=== PATIENT | male | born 1955 | race Caucasian/White ===

== ENCOUNTER 2023-11-15 12:02 | Observation (INO) | payer MEDICARE, SELFPAY ==
[2023-11-15] VITALS (14 sets, daily range): BP systolic 103–188; BP diastolic 65–108; PULSE 62–78; RESP 17–24; TEMP 36.6–36.7; O2SAT 93–99; BMI 29.9; BMI 30.4
[2023-11-15 12:30] LABS: Basophils % 0.2 %; Eosinophils % 0.2 %; Hematocrit 44.2 % (37-53); Lymphocytes # 0.6 10^3/uL (0.8-4.8); Lymphocytes % 14.9 %; Mean Corpuscular HGB Conc 34.8 g/dL (30-55); Mean Corpuscular Hemoglobin 31.8 pg (27-33); Mean Corpuscular Volume 91.3 fl (82-101); Mean Platelet Volume 10.6 fL (7.4-10.4); Monocytes # 0.4 10^3/uL (0.2-0.9); Monocytes % 10.2 %; Neutrophils # 3.14 10^3/uL (1.8-7.7); Neutrophils % 74.3 %; Nucleated Red Blood Cells % 0 %; Platelet Count 48 10^3/cmm (157-399); Red Blood Count 4.84 10^6/uL (3.85-5.65); Red Cell Distribution Width 15.1 % (12.1-15.1); White Blood Count 4.23 10^3/uL (3.29-11.43)
--- NOTE | 2023-11-15 12:41 | XRR_ITS ---
PROCEDURE INFORMATION: Exam: XR Chest Exam date and time: 11/15/2023 12:49 PM Age: 68 years old Clinical indication: Pain; Angina pectoris; Additional info: Chest pain TECHNIQUE: Imaging protocol: Radiologic exam of the chest. Views: 1 view. COMPARISON: No relevant prior studies available. FINDINGS: Airway: The airways are patent. Lungs: There are multiple punctate pulmonary parenchymal calcifications, consistent with remote granulomatous organism exposure. No consolidations. Pleural spaces: No pleural effusions or pneumothorax. Heart/Mediastinum: The heart demonstrates mild diffuse enlargement. Vasculature: Calcified aortic knob. Bones/joints: No acute skeletal abnormality or aggressive osseous lesion. Soft tissues: No acute soft tissue findings. XR/XR chest 1V portable [id number] IMPRESSION: No acute thoracic pathology.
--- NOTE | 2023-11-15 12:42 | CTR_ITS ---
PROCEDURE INFORMATION: Exam: CT Abdomen And Pelvis With Contrast Exam date and time: 11/15/2023 1:26 PM Age: 68 years old Clinical indication: Abdominal pain; Localized; Prior surgery; Surgery date: 6+ months; Surgery type: Gb/hernia; Patient HX: Lower abd pain with nausea and vomiting on and off for a 1 1/2 years; Additional info: Abdominal pain, n/v TECHNIQUE: Imaging protocol: Computed tomography of the abdomen and pelvis with contrast. Radiation optimization: All CT scans at this facility use at least one of these dose optimization techniques: automated exposure control; mA and/or kV adjustment per patient size (includes targeted exams where dose is matched to clinical indication); or iterative reconstruction. Contrast material: OMNI 350; Contrast volume: 100 ml; Contrast route: INTRAVENOUS (IV); COMPARISON: CR XR chest 1V portable [id number] 11/15/2023 12:49 PM RADIATION DOSE METRICS: Total DLP (mGy-cm): 880 FINDINGS: Lungs: There are multiple punctate pulmonary parenchymal calcifications, consistent with remote granulomatous organism exposure. Lung bases are clear. Diaphragm: A small hiatal hernia is present. Liver: The liver has a nodular contour and there is relative hypertrophy of the caudate lobe, consistent with cirrhosis. Peripheral calcification in the right hepatic lobe, benign.The liver is otherwise unremarkable. Cavernous transformation of the cecily hepatis. Gallbladder and biliary ducts: Prior cholecystectomy. There is no evidence of biliary ductal dilation. Pancreas: There is diffuse, benign fatty infiltration of the pancreas. There is diffuse atrophy of the pancreatic parenchyma. The pancreas is otherwise unremarkable. Spleen: Spleen is enlarged measuring 19 cm in length. The spleen is otherwise unremarkable. Adrenal glands: The adrenal glands are normal. Kidneys and ureters: There are multiple simple right renal cysts, as large as 3.7 cm. No follow-up is recommended. Subcentimeter left renal hypodense lesions are too small to characterize but most probably benign representing cysts. Consider correlation with nonemergent ultrasound. The kidneys are otherwise unremarkable. The ureters are normal. Stomach and bowel: No bowel obstruction or significant bowel wall thickening. Appendix: No evidence of appendicitis. Intraperitoneal space: There is a small amount of free intraperitoneal fluid present. No intraperitoneal fluid collections. There is no free intraperitoneal air. Moderate to large right inguinal ascites containing nonobstructive hernia. Vasculature: The arterial vasculature demonstrates diffuse mild atherosclerotic calcification. No aortic aneurysms. Linear calcification extending peripherally throughout the main portal vein with non-opacification of the distal main portal vein. Recanalization of the umbilical vein. Extensive varices throughout the omentum, perisplenic space, and retroperitoneum with a left splenorenal shunt. Lymph nodes: No concerning adenopathy. Urinary bladder: The bladder is decompressed. Reproductive: The prostate demonstrates mild nonspecific enlargement. The seminal vesicles are normal. Bones/joints: Severe multilevel degenerative changes of the spine, as manifested by multilevel anterior osteophytes and multilevel decrease in intervertebral disc space. No acute skeletal abnormality or aggressive osseous lesion. Soft tissues: There is a fat-containing umbilical hernia. No acute body wall soft tissue findings. CT/CT abdomen pelvis w con* [id number] IMPRESSION: 1. Advanced cirrhosis and sequela of decompensated portal hypertension. 2. 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 COMMENTS: Consistent with the [employer]'s Incidental Findings Committee white paper (J Am James Radiol 2018): Any incidental renal lesion less than 1 cm or classified as too small to characterize, or any incidental cystic renal lesion characterized as simple-appearing, is likely benign. No follow-up imaging is recommended for these lesions per consensus recommendations based on imaging criteria.
--- NOTE | 2023-11-15 12:42 | ED_ITS ---
HPI - Nausea/Vomiting/Diarrhea 2 General: Chief complaint: Abdominal Pain Stated complaint: n/v, testiculs are swollen Time Seen by Provider: 11/15/23 12:10 Source: patient Mode of arrival: wheelchair Limitations: no limitations History of Present Illness: Patient is a 68-year-old male with a history of non-alcoholic liver cirrhosis here with his significant other for evaluation of chronic nausea, vomiting, diarrhea, abdominal pain, anorexia/decreased appetite. Patient states he follows with a liver specialist, Dr. Kelley, at [facility]. He states at one point he was on a liver transplant list but was taken off of this. He also follows up with Dr. Ovalles, presumably GI at [facility] in [place]. states symptoms have been an ongoing problem but do not seem to be getting any better. Patient feels like over the past 4 days they are worse. states he is going to because he cannot eat . Patient reportedly has had multiple endoscopies, capsule endoscopies, colonoscopies, etc. He was told he had inflammation in the lining of the stomach . He is supposed to be taking omeprazole but states he cannot hold down this medication. He has not been taking his lactulose because it gives him diarrhea which he states he already has even without the medication. He states he does not routinely require paracentesis-last one he had performed was two years ago. He does not have a primary care provider. He has no records through [facility] so attempts at getting records from [facility] will be made. He has not had any fevers. No hematemesis/history of esophageal varices. No black/tarry stools. MD elicited complaint: nausea, vomiting, diarrhea and abdominal pain Pertinent past history: other (liver cirrhosis) Onset (ago): day(s) Description of diarrhea: watery Associated nausea: Yes Associated abdominal pain: Yes Location of pain: Diffuse Radiation: diffuse Pain consistency: constant Severity: moderate Quality: cramping and aching Exacerbating factors: eating Relieving factors: none Associated symtoms: Reports fatigue and nausea; Denies change in vision, chest pain, dizziness, dysuria, headache(s), palpitations or syncope Review of Systems 2 Const: Reports: change in appetite, change in weight and fatigue; Denies: fever(s), chills or body aches Eyes: Denies: change in vision or blurry vision Card: Denies: chest pain, palpitations, irregular heart rhythm, lightheadedness, syncope or dyspnea on exertion Resp: Denies: dyspnea, productive cough or pain on inspiration GI: Reports: abdominal pain, nausea, vomiting and diarrhea; Denies: hematemesis, heartburn, hematochezia or melena : Denies: flank pain, difficulty urinating, dysuria, urinary frequency, urinary urgency or urinary hesitancy Musc: Denies: neck pain, back pain, extremity pain, extremity swelling or joint pain Skin/Breast: Denies: rash Neuro: Denies: headache(s), numbness in extremities, weakness in extremities, sensory changes or dizziness Physical Exam 2 Const: COMMON NORMALS: no acute distress, patient oriented x3, no limitations and alert GENERAL APPEARANCE: cooperative ORIENTATION/CONSCIOUSNESS: Yes awake, Yes oriented to person, Yes oriented to place and Yes oriented to time OTHER: appears jaundiced Eye: GENERAL EYE: appearance normal, both eyes and all related structures Resp: COMMON NORMALS: normal respiratory effort and clear to auscultation bilaterally EFFORT & INSPECTION: Yes tachypneic AUSCULTATION: clear to auscultation bilaterally Cardio: COMMON NORMALS: regular rate and regular rhythm RATE: regular rate RHYTHM: regular rhythm GI: COMMON NORMALS: Soft to palpation and no masses INSPECTION: No caput medusae present and No Fluid wave present AUSCULTATION: Yes normoactive bowel sounds PALPATION: Yes Soft to palpation, Yes Tenderness to palpation present (GI) (diffusely), No Guarding due to palpation present (GI) and No Rigid due to palpation PERCUSSION: no fluid wave : COMMON NORMALS: Yes no CVA tenderness BLADDER/KIDNEY EXAM: Yes no CVA tenderness Back/Pelvis: COMMON NORMALS: no CVA tenderness and thoracic and lumbar spine normal to inspection Extremity: NARRATIVE EXTREMITY EXAM: mild lower extremity edema GENERAL: Yes normal exam except as noted Neuro: COMMON NORMALS: patient oriented x3, moves all extremities, no focal motor deficits and no sensory deficits noted SENSORIUM/ORIENTATION: Yes alert, Yes oriented to person, Yes oriented to place and Yes oriented to time Course 2 Consultations: Consultation #1: Dr. Francis-liver specialist at [facility]-recommends admission here until transfer-treat prophylactically with SBP with ceftriaxone and albumin Consultation #2: Dr. Dowd-accepts hospitalization Vital Signs: Vital signs: Vital Signs Temperature 97.9 F 11/15/23 12:20 Pulse Rate 69 11/15/23 15:30 Respiratory Rate 20 H 11/15/23 15:00 Blood Pressure 156/108 11/15/23 15:30 Pulse Oximetry 95 11/15/23 15:30 Oxygen Delivery Me thod Room Air 11/15/23 15:30 MDM - Nausea/Vomiting/Diarrhea Medical Decision Making Patient is a 68-year-old male with a history of nonalcoholic liver cirrhosis here for complaints of nausea, vomiting, diarrhea, abdominal pain, decreased appetite, trouble eating. Patient states these have been chronic over the past year but have worsened over the past 4 days. Patient follows up with hepatology at [facility]. We have attempted to get records from them as well as [facility] without success. He has never been through [facility] before so I do not have any baseline comparison labs or imaging. His labs today do not appear overly abnormal for what I would expect somebody with advanced liver cirrhosis. He is thrombocytopenic. He has hyperbilirubinemia. INR is elevated. CT scan showing advanced cirrhosis and sequela of decompensated portal hypertension with chronic main portal vein thrombosis. I was able to finally able to speak to Dr. Francis through [facility] liver specialist team (Dr. Kelley is on vacation and this is one of her partners). He is recommending possible admission to our hospital service for prophylactic treatment of SBP although he thinks this is a low possibility. He has accepted patient to [facility] when bed is available. States if patient does not improve and bilirubin continues to elevate he would continue plan for transfer and be evaluated for possible liver transplant. If he begins to feel better and labs start looking better he could probably cancel transfer and follow up as an outpatient. Records did eventually get faxed. Patient's thrombocytopenia and INR today are at his baseline. His hyperbilirubinemia is elevated today (4.8 compared to 1.9 three months ago). Looking through documentation patient does have a history of nonbleeding esophageal varices as well as portal hypertensive gastropathy. He does have known chronic portal vein thrombosis but has never been started on anticoagulation. Dr. Dowd will accept patient. Medical Records I reviewed the patient's medical records. Lab Data I reviewed the patient's lab results. 11/15/23 12:26 11/15/23 12:26 Radiology Impressions Chest X-Ray 11/15/23 12:41 IMPRESSION: No acute thoracic pathology. Abdomen/Pelvis CT 11/15/23 12:42 IMPRESSION: 1. Advanced cirrhosis and sequela of decompensated portal hypertension. 2. 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 COMMENTS: Consistent with the [employer]'s Incidental Findings Committee white paper (J Am James Radiol 2018): Any incidental renal lesion less than 1 cm or classified as too small to characterize, or any incidental cystic renal lesion characterized as simple-appearing, is likely benign. No follow-up imaging is recommended for these lesions per consensus recommendations based on imaging criteria. Laboratory Results WBC 4.23 10^3/uL (3.29-11.43) 11/15/23 12:26 RBC 4.84 10^6/uL (3.85-5.65) 11/15/23 12:26 Hgb 15.40 g/dL (11.27-16.99) 11/15/23 12:26 Hct 44.2 % (37-53) 11/15/23 12:26 MCV 91.3 fl (82-101) 11/15/23 12:26 MCH 31.8 pg (27-33) 11/15/23 12:26 MCHC 34.8 g/dL (30-55) 11/15/23 12:26 RDW 15.1 % (12.1-15.1) 11/15/23 12:26 Plt Count 48 10^3/cmm (157-399) L 11/15/23 12:26 MPV 10.6 fL (7.4-10.4) H 11/15/23 12:26 Neut % (Auto) 74.3 % 11/15/23 12:26 Lymph % (Auto) 14.9 % 11/15/23 12:26 [place] % (Auto) 10.2 % 11/15/23 12:26 Eos % (Auto) 0.2 % 11/15/23 12:26 Baso % (Auto) 0.2 % 11/15/23 12:26 Neut # (Auto) 3.14 10^3/uL (1.8-7.7) 11/15/23 12:26 Lymph # (Auto) 0.6 10^3/uL (0.8-4.8) L 11/15/23 12:26 [place] # (Auto) 0.4 10^3/uL (0.2-0.9) 11/15/23 12:26 Eos # (Auto) 0.0 10^3/uL (0.0-0.8) 11/15/23 12:26 Baso # (Auto) 0.0 10^3/uL (0.0-0.1) 11/15/23 12:26 Nucleated RBC % (auto) 0 % 11/15/23 12: Nucleated RBCs # 0.0 /100WBC 11/15/23 12: PT 17.90 SECONDS (12.1-14.9) H 11/15/23 12: INR 1.43 (0.8-1.2) H 11/15/23 12:26 APTT 35.8 SECONDS (23.9-36.7) 11/15/23 12:26 Sodium 136 mmol/L (136-145) 11/15/23 12:26 Potassium 3.5 mmol/L (3.5-5.1) 11/15/23 12:26 Chloride 99 mmol/L (98-107) 11/15/23 12:26 Carbon Dioxide 20 mmol/L (22-29) L 11/15/23 12:26 Anion Gap 20.5 (5-19) H 11/15/23 12:26 BUN 10 mg/dL (8-23) 11/15/23 12:26 Creatinine 0.6 mg/dL (0.7-1.2) L 11/15/23 12:26 GFR Calculation 134.4 mL/min (90-130) H 11/15/23 12:26 Glucose 149 mg/dL (65-115) H 11/15/23 12:26 Calculated Osmolality 284 mOsm/kg (285-295) L 11/15/23 12:26 Lactic Acid 3.4 mmol/L (0.5-2.2) H 11/15/23 12:26 Lactic Acid (Sepsis) 3.9 mmol/L (0.5-2.2) H 11/15/23 15:20 Calcium 10.2 mg/dL (8.5-10.5) 11/15/23 12:26 Total Bilirubin 4.8 mg/dL (0.15-1.2) H 11/15/23 12:26 AST 43 U/L (0-40) H 11/15/23 12:26 ALT 27 U/L (0-41) 11/15/23 12:26 Alkaline Phosphatase 105 U/L (40-130) 11/15/23 12:26 Ammonia 21 umol/L (16-60) 11/15/23 12:26 Creatine Kinase 69 U/L (39-308) 11/15/23 12:26 NT-Pro-B Natriuret Pep 616 pg/mL (0-125) H 11/15/23 12:26 Total Protein 8.8 g/dL (6.6-8.7) H 11/15/23 12:26 Albumin 4.0 g/dL (3.5-5.2) 11/15/23 12:26 Globulin 4.8 g/dL (1.3-4.6) H 11/15/23 12:26 Lipase 73 U/L (13-60) H 11/15/23 12:26 Urine Color Yellow (Yellow) 11/15/23 13:32 Urine Appearance Slightly cloudy (CLEAR) 11/15/23 13:32 Urine pH 8 (5-7) H 11/15/23 13:32 Ur Specific [place] 1.015 (1.005-1.030) 11/15/23 13:32 Urine Protein Neg (Negative) 11/15/23 13:32 Urine Glucose (UA) Norm (Normal) 11/15/23 13:32 Urine Ketones 2+ (Negative) H 11/15/23 13:32 Urine Blood Neg (Negative) 11/15/23 13:32 Urine Nitrate Negative (Negative) 11/15/23 13:32 Urine Bilirubin Neg (Negative) 11/15/23 13:32 Urine Urobilinogen Norm mg/dL (Negative) 11/15/23 13:32 Ur Leukocyte Esterase Negative (Negative) 11/15/23 13:32 Urine RBC None /hpf (0-2) 11/15/23 13:32 Urine WBC 0-4 /hpf (0-5) H 11/15/23 13:32 Ur Squamous Epith Cells 0-4 /hpf (0-5) H 11/15/23 13:32 Amorphous Sediment 3+ /hpf 11/15/23 13:32 Urine Bacteria Trace /hpf (NONE) 11/15/23 13:32 H. pylori IgG Antibody Negative (Negative) 11/15/23 12:26 All radiology interpretation(s) finalized by discharge Discharge Plan Discharge Patient Disposition: Admitted As Inpatient Clinical Impression: Chronic liver disease and cirrhosis, Portal hypertensive gastropathy, Hyperbilirubinemia Condition: Stable Coding Level of Care Code ED Financial Compliance Manager for Hebert Mcneal
[2023-11-15] MEDS: ondansetron 2 mg/ML SDV 2 mL 4 MG IVP (12:44)
[2023-11-15 12:47] LABS: Alanine Aminotransferase 27 U/L (0-41); Alkaline Phosphatase 105 U/L (40-130); Anion Gap 20.5 (5-19); Aspartate Amino Transferase 43 U/L (0-40); Blood Urea Nitrogen 10 mg/dL (8-23); Calcium 10.2 mg/dL (8.5-10.5); Carbon Dioxide 20 mmol/L (22-29); Chloride 99 mmol/L (98-107); Creatinine Clr Calc Pharmacy 88.1561; Globulin 4.8 g/dL (1.3-4.6); Glomerular Filtration Rate 134.4 mL/min (90-130); Glucose 149 mg/dL (65-115); Osmolality Calculated 284 mOsm/kg (285-295); Potassium 3.5 mmol/L (3.5-5.1); Sodium 136 mmol/L (136-145); Total Bilirubin 4.8 mg/dL (0.15-1.2); Total Protein 8.8 g/dL (6.6-8.7)
[2023-11-15 12:58] LABS: INR 1.43 (0.8-1.2); Partial Thromboplastin Time 35.8 SECONDS (23.9-36.7)
[2023-11-15 13:04] LABS: Creatine Phosphokinase 69 U/L (39-308); Lipase 73 U/L (13-60)
[2023-11-15 13:08] LABS: Ammonia 21 umol/L (16-60)
[2023-11-15 13:14] LABS: Lactic Sepsis W/Reflex 3.4 mmol/L (0.5-2.2)
[2023-11-15 13:21] LABS: H. Pylori IgG Antibody Negative (Negative)
[2023-11-15] MEDS: iohexol 350 mg/mL 500 mL Btl (per mL) IV (13:29)
[2023-11-15 13:31] LABS: NT Pro B Type Natriuretic Pept 616 pg/mL (0-125)
[2023-11-15] MEDS: pantoprazole 40 mg SDV IVP ×2 (13:37→20:41)
[2023-11-15] MEDS: lidocaine 2% viscous 15 ML, aluminum-mag hydrox-simethicon 30 ML, sucralfate oral liq 1 GM PO (13:37)
[2023-11-15 14:15] LABS: Urine Color Yellow (Yellow)
[2023-11-15 14:16] LABS: Add Urine Microscopic? YES; Amorphous Sediment Urine 3+ /hpf; Bacteria Urine TRACE /hpf; Bilirubin Urine Neg (Negative); Blood Urine Neg (Negative); Glucose Urine UA Norm (Normal); Ketones Urine 2+ (Negative); Leukocyte Esterase Urine Negative (Negative); Nitrate Urine Negative (Negative); Protein Urine Neg (Negative); Specific Gravity, Urine 1.015 (1.005-1.030); Squamous Epithelial Cell Urine 0-4 /hpf (0-5); Urine Appearance Slightly Cloudy (CLEAR); Urobilinogen Urine Norm (Negative); WBC Urine 0-4 /hpf (0-5); pH Urine 8 (5-7)
[2023-11-15 14:17] LABS: Add Urine Culture? No
[2023-11-15] MEDS: metoclopramide 5 mg/mL SDV 2 mL 10 MG IVP (14:31)
[2023-11-15 14:38] LABS: Reflex Lactate Order REFLEX LACTIC ORDERD
[2023-11-15 15:43] LABS: Lactic Acid level (Lactate) 3.9 mmol/L (0.5-2.2)
[2023-11-15] MEDS: sodium chloride 0.9% 500 ML 999 ML IV (16:15)
[2023-11-15] MEDS: cefTRIAXone 2,000 mg SDV 2000 MG IVP (17:22)
[2023-11-15] MEDS: albumin 25 G/100 ML BAG 60 G IV (17:33)
[2023-11-15] MEDS: water for injection-sterile 10 ML (17:37)
--- NOTE | 2023-11-15 18:23 | PC.NURSE ---
Report called to Gurpreet on med-surge.
--- NOTE | 2023-11-15 18:38 | PC.NURSE ---
Patient arrives to unit via a bed at 1840. He was able to transfer to hospital bed by walking.
--- NOTE | 2023-11-15 19:06 | PM.HP ---
Providers/Chief Complaint Admitting Physician: Hamilton Dowd Chief Complaint: n/v, testiculs are swollen History of Present Illness Pleasant 68-year-old gentleman with history of nonalcoholic liver cirrhosis, following with hepatology at [facility] and gastroenterology at [facility], esophageal varices, but also some recurrent difficulties with episodes of nausea and vomiting, anorexia, reports the source of this has not been clearly identified he previously had endoscopic evaluation with finding of only mild gastritis, with history of diabetes, he states he has also had a gastric emptying study with his stomach emptying a good time, he states he has been unable to keep down food drink or his medications, vomiting up some greenish slime. He has been losing weight, and lost over 10 pounds. The last 4 days this is gotten worse, to the point that he consistently has not been able to keep his medications down. Has not kept any food down. He has chronic diarrhea. Has been unable to keep down his acid jarrod, on other medicines. He has been having chills. And states has been feeling hot to touch. In ER he is febrile he is noted to have worsening of T. bili up to 4.8 compared to prior INR is 1.43. Platelets 48. 3. ET abdomen pelvis with advanced cirrhosis and sequela of decompensated portal hypertension. 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 Case was discussed with hepatology and [facility], at current time there are no beds available there. With concern for decompensated cirrhosis, they are recommending admission here with empiric treatment for possibility of SBP, albumin, symptomatic treatment nausea, reassessment while pending bed to [facility]. Review of Systems Const: Reports: change in appetite and change in weight; Denies: fever(s), chills, body aches or malaise ENMT: Denies: throat pain, oral sores or ear or mastoid pain Card: Denies: chest pain, edema, pre-syncope or dyspnea on exertion Resp: Denies: dyspnea, productive cough, change in phlegm color or hemoptysis GI: Reports: nausea and vomiting; Denies: abdominal pain, diarrhea, constipation, hematochezia or melena : Denies: flank pain, difficulty urinating, urinary frequency or hematuria Musc: Denies: back pain, joint swelling or joint redness Skin/Breast: Denies: rash or new lesions Neuro: Denies: headache(s) or dizziness Medications/Allergies Home Medications Medication Instructions Recorded Confirmed Last Taken Type cetirizine 10 mg tablet 10 mg PO DAILY PRN ALLERGIES 11/15/23 11/15/23 11/11/23 History empagliflozin 25 mg tablet 25 mg PO DAILY 11/15/23 11/15/23 11/11/23 History (Jardiance) fluoxetine 20 mg capsule 20 mg PO DAILY 11/15/23 11/15/23 11/11/23 History furosemide 40 mg tablet 40 mg PO DAILY 11/15/23 11/15/23 11/11/23 History hydroxyzine HCl 25 mg tablet 25 mg PO DAILY 11/15/23 11/15/23 11/11/23 History lactulose 10 gram/15 mL oral See Rx Instructions .Route .COMPLEX 11/15/23 11/15/23 11/11/23 History solution (Constulose) methadone 10 mg tablet See Rx Instructions .Route .COMPLEX 11/15/23 11/15/23 11/11/23 History methadone 5 mg tablet See Rx Instructions .Route .COMPLEX 11/15/23 11/15/23 11/11/23 History montelukast 10 mg tablet 10 mg PO DAILY 11/15/23 11/15/23 11/11/23 History omeprazole 40 mg capsule,delayed 10 mg PO DAILY 11/15/23 11/15/23 11/11/23 History release potassium chloride 20 mEq 20 meq PO DAILY 11/15/23 11/15/23 11/12/23 History tablet,extended release(part/cryst) (Klor-Con M) rifaximin 550 mg tablet (Xifaxan) 550 mg PO BID 11/15/23 11/15/23 11/11/23 History spironolactone 25 mg tablet 25 mg PO BID 11/15/23 11/15/23 11/11/23 History zolpidem 5 mg tablet See Rx Instructions .Route .COMPLEX 11/15/23 11/15/23 11/11/23 History Allergies Allergy/AdvReac Type Severity Reaction Status Date / Time codeine Allergy ADR-Halluci Verified 11/15/23 13:53 nating hydrocodone Allergy ADR-Halluci Verified 11/15/23 13:53 nating morphine Allergy ADR-Halluci Verified 11/15/23 13:53 nating oxycodone Allergy ADR-Halluci Verified 11/15/23 12:22 nating PFSH Acute PFSH: Medical History (Updated 11/15/23 @ 19:22 by Hamilton Dowd MD) Non-alcoholic cirrhosis Social History (Updated 11/15/23 @ 19:18 by Hamilton Dowd MD) Marital status: Vitals/I&O/Wt Last Vital Signs Temp 97.9 F 11/15/23 12:20 Pulse 75 11/15/23 17:30 Resp 19 H 11/15/23 16:30 BP 129/73 11/15/23 16:00 Pulse Ox 95 11/15/23 17:30 O2 Del Method Room Air 11/15/23 17:00 11/15/23 11/15/23 11/15/23 06:59 14:59 22:59 Intake Total 500 / 500 Balance 500 / 500 Weight last 48 hrs Weight 81.647 kg Physical Exam Narrative: Accompanied by his . Const: COMMON NORMALS: patient oriented x3 and alert GENERAL APPEARANCE: cooperative ORIENTATION/CONSCIOUSNESS: Yes awake HENMT: COMMON NORMALS: oropharynx normal Neck/C-Spine: COMMON NORMALS: no JVD Resp: COMMON NORMALS: normal respiratory effort and clear to auscultation bilaterally AUSCULTATION: clear to auscultation bilaterally Cardio: COMMON NORMALS: no JVD, regular rhythm, S1 normal heart sound present, S2 normal heart sound present and No murmurs present (Cardio) RHYTHM: regular rhythm HEART SOUNDS: S1 normal heart sound present and S2 normal heart sound present GI: COMMON NORMALS: Normal to inspection, nondistended, normoactive bowel sounds present and Soft to palpation PALPATION: Yes Soft to palpation OTHER: Large abdomen. Extremity: COMMON NORMALS: no joint enlargement and no pedal edema Neuro: COMMON NORMALS: patient oriented x3 and moves all extremities SENSORIUM/ORIENTATION: Yes alert Skin: COMMON NORMALS: no rashes or lesions noted GENERAL SKIN EXAM: no rashes or lesions noted Data 11/15/23 12:26 11/15/23 12:26 Micro: Microbiology 11/15/23 16:38 Blood Culture - Preliminary Blood SPECIMEN COLLECTED 11/15/23 16:34 Blood Culture - Preliminary Blood SPECIMEN COLLECTED A&P Assessment and plan (1) Decompensated hepatic cirrhosis: Decompensated on alcoholic hepatic cirrhosis, with worsening T. bili, hemoglobin 4.8, with small amount of ascites on CT, nonincarcerated hernia, without signs of obstruction. Signs of severe portal hypertension on CT, also noted lactic acidosis 3.4, 3.9 on repeat. Has had recurrent nausea and vomiting, unable to tolerate oral intake, unable to keep down his medications. Received Zofran IV. Continue Zofran IV for now until able to tolerate some oral intake more reliably. Noted thrombocytopenia 48, INR 1.43. Per hepatology recommendation treat for suspicion of possible SBP with ceftriaxone, albumin infusions. He is on the list for admission to [facility] for additional assessment possibly consideration of needing liver transplant. Reviewed vitals, CBC, INR, CMP, lactic acid, CK, BNP, lipase, UA H. pylori, chest x-ray, CT abdomen pelvis. Reviewed ER provider note, discussed with ER provider. States she sometimes takes an NSAID for aches and pains, otherwise sometimes takes aspirin. Discussed with him to avoid NSAIDs at all times may contribute to worsening liver cirrhosis. Pending bed opening at [facility] in case of lack of improvement. Otherwise if he does improve over the next couple of days may be able to follow-up with [facility] on outpatient basis as per hepatology. (2) Portal hypertensive gastropathy: Severe portal hypertension noted on CT. With suspicion of portal potential gastropathy, will provide albumin at this time. Switch PPI to IV. Continue Lasix. Will switch to IV for now. Monitor for risk of dehydration with diuretic. Reassess electrolytes due to risk of electrolyte deficiency. Hold off spironolactone for now, reassess volume status as he is at risk of dehydration. Additionally spironolactone does have an adverse effect of nausea vomiting and diarrhea. (3) Hyperbilirubinemia: This prescription with hepatology secondary to decompensation of cirrhosis. May be concerning for SBP. Empiric coverage with ceftriaxone, albumin infusions. Reassess condition. (4) Nausea and vomiting: Will switch PPI to IV with some history of gastritis as well. Nausea vomiting but also chronic diarrhea. At risk of dehydration, at risk of complications due to unable to take any medications. Will hold spironolactone for now. Decrease fluoxetine to half dose as per discussion with him and his . Discussed risk of worsening depression, he does have history of depression. Sitter resumption of the medication to see if mother may be contributing. Additionally discussed with him and his risk of nausea and vomiting with methadone. States that he had already cut down significantly on his medication, previously he was on 60 mg. They would like to continue for now but may consider in the future in case of persistent symptoms trying an alternative, although he does not tolerate pain medications well with multiple adverse effects to different opioids. In addition to portal hypertensive gastropathy, we discussed supportive thrombosis, he states was found to have possible mild gastritis previously found as well. Will switch his PPI to IV he cannot reliably tolerate oral medications at this time. Discussed with him to avoid any NSAIDs. Attestations Medical Necessity Statement*: Place in observation for additional assessment management of recurrent nausea and vomiting, unable to keep down medications with decompensated cirrhosis, with possible SBP, with severe portal hypertension. Diagnoses Decompensated hepatic cirrhosis K72.90; K74.60 Portal hypertensive gastropathy K76.6; K31.89 Hyperbilirubinemia E80.6 Nausea and vomiting R11.2
[2023-11-15 20:24] LABS: Glucose Point of Care 112 mg/dL (70-110)
[2023-11-15] MEDS: lactulose oral liq 20 gm/30 mL UDC 13.3333 GM PO (20:39)
[2023-11-15] MEDS: zolpidem 5 mg Tablet 2.5 MG PO (20:39)
[2023-11-16] VITALS: BP 123/72; PULSE 79; RESP 17; TEMP 36.8; O2SAT 97
[2023-11-16] MEDS: albumin 25 G/100 ML BAG 60 G IV ×3 (00:53→17:57)
[2023-11-16] MEDS: lactulose oral liq 20 gm/30 mL UDC 13.3333 GM PO ×4 (03:42→20:37)
[2023-11-16 04:00] VITALS: BP 168/81; PULSE 67; RESP 17; TEMP 36.6; O2SAT 96
[2023-11-16 06:23] LABS: Glucose Point of Care 91 mg/dL (70-110)
[2023-11-16] MEDS: pantoprazole 40 mg SDV IVP ×2 (06:36→20:37)
[2023-11-16 07:11] LABS: Basophils % 0.4 %; Eosinophils % 0.8 %; Hematocrit 37.3 % (37-53); Lymphocytes # 0.5 10^3/uL (0.8-4.8); Lymphocytes % 18.9 %; Mean Corpuscular HGB Conc 34.6 g/dL (30-55); Mean Corpuscular Hemoglobin 32.5 pg (27-33); Mean Platelet Volume 10.3 fL (7.4-10.4); Monocytes # 0.5 10^3/uL (0.2-0.9); Monocytes % 19.3 %; Neutrophils # 1.47 10^3/uL (1.8-7.7); Neutrophils % 60.2 %; Nucleated Red Blood Cells % 0 %; Platelet Count 34 10^3/cmm (157-399); Red Blood Count 3.97 10^6/uL (3.85-5.65); Red Cell Distribution Width 15.5 % (12.1-15.1); White Blood Count 2.44 10^3/uL (3.29-11.43)
[2023-11-16 07:42] LABS: Alanine Aminotransferase 19 U/L (0-41); Albumin Level 3.7 g/dL (3.5-5.2); Alkaline Phosphatase 82 U/L (40-130); Anion Gap 14.3 (5-19); Aspartate Amino Transferase 33 U/L (0-40); Blood Urea Nitrogen 10 mg/dL (8-23); Calcium 9.4 mg/dL (8.5-10.5); Carbon Dioxide 24 mmol/L (22-29); Chloride 104 mmol/L (98-107); Creatinine Clr Calc Pharmacy 88.8228; Globulin 3.6 g/dL (1.3-4.6); Glomerular Filtration Rate 134.4 mL/min (90-130); Glucose 101 mg/dL (65-115); Osmolality Calculated 287 mOsm/kg (285-295); Phosphorus 2.9 mg/dL (2.5-4.5); Potassium 3.3 mmol/L (3.5-5.1); Sodium 139 mmol/L (136-145); Thyroid Stimulating Hormone 1.25 uIU/mL (0.27-4.20); Total Bilirubin 2.9 mg/dL (0.15-1.2); Total Protein 7.3 g/dL (6.6-8.7)
[2023-11-16 08:28] VITALS: BP 108/59; PULSE 64; RESP 17; TEMP 36.8; O2SAT 96
--- NOTE | 2023-11-16 09:47 | PC.NURSE ---
Edgard updated with patients most recent vitals, AM labs, and new orders.
[2023-11-16] MEDS: FUROsemide 10 mg/mL SDV 2mL 20 MG IVP (10:11)
[2023-11-16] MEDS: potassium chloride ER 20 mEq Tablet PO (10:11)
[2023-11-16] MEDS: methadone 10 mg Tablet PO (10:11)
[2023-11-16] MEDS: montelukast sodium 10 mg Tablet PO (10:11)
[2023-11-16] MEDS: fluoxetine 10 mg Capsule PO (10:11)
[2023-11-16 10:36] LABS: LAB Peripheral Smear Sent for Review
[2023-11-16 12:09] VITALS: BP 146/73; PULSE 68; RESP 18; TEMP 36.4; O2SAT 94
[2023-11-16 12:11] LABS: Glucose Point of Care 129 mg/dL (70-110)
[2023-11-16 13:08] LABS: Adenovirus Not Detected (NOT DETECT); Chlamydia Pneumoniae Not Detected (NOT DETECT); Coronavirus 229E,HKU1,NL63,OC4 Not Detected (NOT DETECT); Human Metapneumovirus Not Detected (NOT DETECT); Human Rhinovirus/Enterovirus Not Detected (NOT DETECT); Influenza A Not Detected (NOT DETECT); Influenza A H1 Not Detected (NOT DETECT); Influenza A H1-2009 Not Detected (NOT DETECT); Influenza A H3 Not Detected (NOT DETECT); Influenza B Not Detected (NOT DETECT); Mycoplasma Pneumoniae Not Detected (NOT DETECT); Parainfluenza Virus Type 1 Not Detected (NOT DETECT); Parainfluenza Virus Type 2 Not Detected (NOT DETECT); Parainfluenza Virus Type 3 Not Detected (NOT DETECT); Parainfluenza Virus Type 4 Not Detected (NOT DETECT); Respiratory Syncytial Virus A Not Detected (NOT DETECT); Respiratory Syncytial Virus B Not Detected (NOT DETECT); SARS-COV-2 Not Detected (NOT DETECT)
[2023-11-16 15:40] VITALS: BP 151/69; PULSE 59; RESP 18; TEMP 36.4; O2SAT 97
[2023-11-16 16:29] LABS: Glucose Point of Care 245 mg/dL (70-110)
[2023-11-16] MEDS: cefTRIAXone 2,000 mg SDV 2000 MG IVP (17:42)
[2023-11-16] MEDS: water for injection-sterile 10 ML (17:43)
[2023-11-16] MEDS: insulin lispro 100 unit/1 mL SUBCUT (17:43)
[2023-11-16 19:39] VITALS: BP 157/72; PULSE 65; RESP 18; TEMP 36.3; O2SAT 98
[2023-11-16 20:39] LABS: Glucose Point of Care 63 mg/dL (70-110)
[2023-11-16] MEDS: zolpidem 5 mg Tablet 2.5 MG PO (20:39)
--- NOTE | 2023-11-16 21:55 | PM.PN ---
Subjective Subjective: He reports today he is feeling somewhat better. He did not eat yet this morning. He will vomiting, but so far without oral intake did not have recurrence of vomiting. Vitals/I&O/Wt Last Vital Signs Temp 97.4 F L 11/16/23 19:39 Pulse 65 11/16/23 19:39 Resp 18 11/16/23 19:39 BP 157/72 11/16/23 19:39 Pulse Ox 98 11/16/23 19:39 O2 Del Method Room Air 11/16/23 15:40 11/16/23 11/16/23 11/16/23 06:59 14:59 22:59 Intake Total 830 / 1790 1060 / 1060 1090 / 2150 Balance 830 / 1790 1060 / 1060 1090 / 2150 Weight last 48 hrs Weight 82.962 kg Weight 83.121 kg Weight 81.647 kg Physical Exam Narrative: Sitting up on the bed. Const: COMMON NORMALS: patient oriented x3 and alert GENERAL APPEARANCE: cooperative ORIENTATION/CONSCIOUSNESS: Yes awake HENMT: COMMON NORMALS: oropharynx normal Neck/C-Spine: COMMON NORMALS: no JVD Resp: COMMON NORMALS: normal respiratory effort and clear to auscultation bilaterally AUSCULTATION: clear to auscultation bilaterally Cardio: COMMON NORMALS: no JVD, regular rhythm, S1 normal heart sound present, S2 normal heart sound present and No murmurs present (Cardio) RHYTHM: regular rhythm HEART SOUNDS: S1 normal heart sound present and S2 normal heart sound present GI: COMMON NORMALS: Normal to inspection, nondistended, normoactive bowel sounds present and Soft to palpation PALPATION: Yes Soft to palpation OTHER: Large abdomen. Extremity: COMMON NORMALS: no joint enlargement and no pedal edema Neuro: COMMON NORMALS: patient oriented x3 and moves all extremities SENSORIUM/ORIENTATION: Yes alert Skin: COMMON NORMALS: no rashes or lesions noted GENERAL SKIN EXAM: no rashes or lesions noted Data 11/16/23 06:33 11/16/23 06:33 Micro: Microbiology 11/15/23 16:38 Blood Culture - Preliminary Blood NEGATIVE TO DATE 11/15/23 16:34 Blood Culture - Preliminary Blood NEGATIVE TO DATE A&P Assessment and plan (1) Decompensated hepatic cirrhosis: He states that he is feeling somewhat better today. Was afraid to eat some this morning, but so far no additional vomiting without oral intake. Reviewed vitals, CBC, CMP, T. bili does show some improvement at 2.9. Will decrease albumin infusion frequency to every 12 hours. Continue empiric antibiotic coverage for concern of possible SBP. Noted decrease in WBC, discussed with him. Reviewed respiratory viral panel, negative. Worsening leukocytopenia down to 34,000, leukopenia, 4 4. Requested peripheral smear. Discussed with correctional case records supervisor. Decompensated non-alcoholic hepatic cirrhosis, with worsening T. bili, hemoglobin 4.8, with small amount of ascites on CT, nonincarcerated hernia, without signs of obstruction. Signs of severe portal hypertension on CT, also noted lactic acidosis 3.4, 3.9 on repeat. Has had recurrent nausea and vomiting, unable to tolerate oral intake, unable to keep down his medications. Continue Zofran IV. Noted thrombocytopenia 48, INR 1.43. Per hepatology recommendation treat for suspicion of possible SBP with ceftriaxone, albumin infusions. He is on the list for admission to [facility] for additional assessment possibly consideration of needing liver transplant. [facility] was updated on his condition. States she sometimes takes an NSAID for aches and pains, otherwise sometimes takes aspirin. Discussed with him to avoid NSAIDs at all times may contribute to worsening liver cirrhosis. Pending bed opening at [facility] in case of lack of improvement. Otherwise if he does improve over the next couple of days may be able to follow-up with [facility] on outpatient basis as per hepatology. (2) Portal hypertensive gastropathy: Acute worsening with nausea and vomiting. Continue furosemide, albumin at the moment. Coverage for possible SBP. Worsening thrombocytopenia, platelet count 34,000. Reassess cell counts. Monitor for risk of bleeding. Continue PPI IV. So far without additional vomiting, continue Zofran IV. Trial of full liquid diet. Spironolactone could cause nausea vomiting, hold medication for now. Discussed with him also fluoxetine dose was decreased yesterday. Considered with him resuming his usual dose, but with noted worsening thrombocytopenia, risk of bleeding, for now we will hold off on increasing back to 20 mg. Reassess cell counts. To be tolerating methadone. Severe portal hypertension noted on CT. With suspicion of portal potential gastropathy, will provide albumin at this time. Switch PPI to IV. Continue Lasix. Will switch to IV for now. Monitor for risk of dehydration with diuretic. Reassess electrolytes due to risk of electrolyte deficiency. Hold off spironolactone for now, reassess volume status as he is at risk of dehydration. Additionally spironolactone does have an adverse effect of nausea vomiting and diarrhea. (3) Hyperbilirubinemia: This prescription with hepatology secondary to decompensation of cirrhosis. May be concerning for SBP. Empiric coverage with ceftriaxone, albumin infusions. Reassess condition. (4) Nausea and vomiting: As above under Portal hypertensive gastropathy. Will switch PPI to IV with some history of gastritis as well. Nausea vomiting but also chronic diarrhea. At risk of dehydration, at risk of complications due to unable to take any medications. Will hold spironolactone for now. Decrease fluoxetine to half dose as per discussion with him and his . Discussed risk of worsening depression, he does have history of depression. Sitter resumption of the medication to see if mother may be contributing. Additionally discussed with him and his risk of nausea and vomiting with methadone. States that he had already cut down significantly on his medication, previously he was on 60 mg. They would like to continue for now but may consider in the future in case of persistent symptoms trying an alternative, although he does not tolerate pain medications well with multiple adverse effects to different opioids. In addition to portal hypertensive gastropathy, we discussed supportive thrombosis, he states was found to have possible mild gastritis previously found as well. Will switch his PPI to IV he cannot reliably tolerate oral medications at this time. Discussed with him to avoid any NSAIDs. Attestations Medical Necessity Statement*: Hospitalization for decompensated liver cirrhosis, possible SBP, portal hypertensive gastropathy, trial of oral diet. Worsening cytopenias, risk of bleeding. and High MDM includes amount and/or complexity of data reviewed/ordered [ resulted lab(s)/test(s), ordered lab(s)/test(s) and other healthcare professional discussion] as documented Diagnoses Decompensated hepatic cirrhosis K72.90; K74.60 Portal hypertensive gastropathy K76.6; K31.89 Hyperbilirubinemia E80.6 Nausea and vomiting R11.2
[2023-11-16] MEDS: ondansetron 2 mg/ML SDV 2 mL 4 MG IVP (22:44)
[2023-11-17] VITALS: BP 173/74; PULSE 73; RESP 18; TEMP 36.6; O2SAT 96
[2023-11-17] MEDS: lactulose oral liq 20 gm/30 mL UDC 13.3333 GM PO ×2 (03:14→08:38)
[2023-11-17 04:00] VITALS: BP 106/67; PULSE 90; RESP 18; TEMP 37.2
[2023-11-17] MEDS: albumin 25 G/100 ML BAG 60 G IV (05:18)
[2023-11-17 06:20] LABS: Lymphocytes # 0.3 10^3/uL (0.8-4.8); Lymphocytes % 10.4 %; Mean Corpuscular HGB Conc 34.1 g/dL (30-55); Mean Corpuscular Hemoglobin 32.6 pg (27-33); Mean Corpuscular Volume 95.9 fl (82-101); Mean Platelet Volume 11.4 fL (7.4-10.4); Monocytes # 0.2 10^3/uL (0.2-0.9); Monocytes % 8.2 %; Neutrophils # 2.18 10^3/uL (1.8-7.7); Nucleated Red Blood Cells % 0 %; Platelet Count 38 10^3/cmm (157-399); Red Blood Count 3.86 10^6/uL (3.85-5.65); Red Cell Distribution Width 15.2 % (12.1-15.1); White Blood Count 2.69 10^3/uL (3.29-11.43)
[2023-11-17 06:32] LABS: Alanine Aminotransferase 21 U/L (0-41); Albumin Level 3.9 g/dL (3.5-5.2); Alkaline Phosphatase 74 U/L (40-130); Anion Gap 16.3 (5-19); Aspartate Amino Transferase 35 U/L (0-40); Blood Urea Nitrogen 8 mg/dL (8-23); Calcium 9.1 mg/dL (8.5-10.5); Carbon Dioxide 22 mmol/L (22-29); Chloride 103 mmol/L (98-107); Creatinine Clr Calc Pharmacy 88.8456; Globulin 3.4 g/dL (1.3-4.6); Glomerular Filtration Rate 134.4 mL/min (90-130); Glucose 168 mg/dL (65-115); Osmolality Calculated 288 mOsm/kg (285-295); Potassium 3.3 mmol/L (3.5-5.1); Sodium 138 mmol/L (136-145); Total Bilirubin 2.5 mg/dL (0.15-1.2); Total Protein 7.3 g/dL (6.6-8.7)
[2023-11-17 06:43] LABS: Glucose Point of Care 154 mg/dL (70-110)
[2023-11-17 07:26] VITALS: BP 118/61; PULSE 69; RESP 17; O2SAT 92
[2023-11-17] MEDS: insulin lispro 100 unit/1 mL SUBCUT (08:37)
[2023-11-17] MEDS: fluoxetine 10 mg Capsule PO (08:38)
[2023-11-17] MEDS: montelukast sodium 10 mg Tablet PO (08:38)
[2023-11-17] MEDS: pantoprazole 40 mg SDV IVP (08:38)
[2023-11-17] MEDS: methadone 10 mg Tablet PO (08:38)
[2023-11-17] MEDS: FUROsemide 10 mg/mL SDV 2mL 20 MG IVP (08:38)
[2023-11-17] MEDS: potassium chloride ER 20 mEq Tablet PO (08:38)
--- NOTE | 2023-11-17 12:08 | P.DS_ITS ---
Discharge Providers Date of Admission: 11/15/23 18:10 Date of Discharge: November 17, 2023 Attending Provider at Admission: Hamilton Dowd Attending Provider at Discharge: Hamilton Dowd Diagnoses at Discharge Discharge Diagnosis (1) Decompensated hepatic cirrhosis: Status: Acute (2) Portal hypertensive gastropathy: Status: Acute (3) Hyperbilirubinemia: Status: Acute (4) Nausea and vomiting: Status: Acute Reason for Visit Reason for Visit: n/v, testiculs are swollen Brief History: Pleasant 68-year-old gentleman with history of nonalcoholic liver cirrhosis, following with hepatology at [facility] and gastroenterology at [facility], esophageal varices, but also some recurrent difficulties with episodes of nausea and vomiting, anorexia, reports the source of this has not been clearly i dentified he previously had endoscopic evaluation with finding of only mild gastritis, with history of diabetes, he states he has also had a gastric emptying study with his stomach emptying a good time, he states he has been unable to keep down food drink or his medications, vomiting up some greenish slime. He has been losing weight, and lost over 10 pounds. The last 4 days this is gotten worse, to the point that he consistently has not been able to keep his medications down. Has not kept any food down. He has chronic diarrhea. Has been unable to keep down his acid jarrod, on other medicines. He has been having chills. And states has been feeling hot to touch. In ER he is febrile he is noted to have worsening of T. bili up to 4.8 compared to prior INR is 1.43. Platelets 48. 3. ET abdomen pelvis with advanced cirr hosis and sequela of decompensated portal hypertension. 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 Case was discussed with hepatology and [facility], at current time there are no beds available there. With concern for decompensated cirrhosis, they are recommending admission here with empiric treatment for possibility of SBP, albumin, symptomatic treatment nausea, reassessment while pending bed to [place]. Hospital Course Hospital Course He was treated empirically with ceftriaxone as per hepatology recommendation with coverage for possible SBP, as well as with IV albumin infusions. Respiratory viral panel was negative. He required IV antiemetics with Zofran. Spironolactone was held due to possible adverse effect of nausea vomiting. Fluoxetine dose was reduced due to possibility of similar adverse effect. We also discussed possibility of this adverse effect with methadone but he states he had cut down on that dose significantly already. With treatment Crispin kincaid was found to be improving. He gradually started to feel better, and yesterday afternoon was comfortable enough to try to take some oral intake. With continued treatment and with holding spironolactone he did have an episode of vomiting yesterday but his overall symptoms. Improved. He is tolerating oral medications, and tolerated some intake of full liquid diet. During hospitalization she was also found to have worsening of his platelets, down as well as 34,000 yesterday, with leukopenia, WBC down to 2.69. Moderately low neutrophils down to 1.47 yesterday. Due to this low oxygen level is not increased with risk of bleeding, discussed with him and he was counseled to avoid aspirin unless prescribed the medication for specific purpose. He does not take NSAIDs. Discussed with him possible use of Tylenol with limitation below 2000 mg. Peripheral smear was requested, and is pending, please follow-up. Today his counts are showing improvement, neutrophils up to normal range, platelets up to 38,000. We discussed with him to look for now hold spironolactone and continue on reduced dose of fluoxetine at 10 mg until reassessment. He is to continue potassium supplementation and intake of potassium rich food. He will complete a course with cefdinir and follow-up with pathology regarding decompensation of liver cirrhosis. With portal hypertensive gastropathy he is advised to take small meals part of the day which he states he mostly does already. Please reassess his blood counts and electrolytes at follow-up. Physical Exam Narrative: Sitting up in the chair, accompanied by his , in good spirits. Reports he is feeling well. Const: COMMON NORMALS: patient oriented x3 and alert GENERAL APPEARANCE: cooperative ORIENTATION/CONSCIOUSNESS: Yes awake HENMT: COMMON NORMALS: oropharynx normal Neck/C-Spine: COMMON NORMALS: no JVD Resp: COMMON NORMALS: normal respiratory effort and clear to auscultation bilaterally AUSCULTATION: clear to auscultation bilaterally Cardio: COMMON NORMALS: no JVD, regular rhythm, S1 normal heart sound present, S2 normal heart sound present and No murmurs present (Cardio) RHYTHM: regular rhythm HEART SOUNDS: S1 normal heart sound present and S2 normal heart sound present GI: COMMON NORMALS: Normal to inspection, nondistended, normoactive bowel sounds present and Soft to palpation PALPATION: Yes Soft to palpation OTHER: Large abdomen. Extremity: COMMON NORMALS: no joint enlargement and no pedal edema Neuro: COMMON NORMALS: patient oriented x3 and moves all extremities SENSORIUM/ORIENTATION: Yes alert Skin: COMMON NORMALS: no rashes or lesions noted GENERAL SKIN EXAM: no rashes or lesions noted Discharge Data Studies Completed and Pending Completed Studies During Hospitalization Category Date Time Status CT abdomen pelvis w con* [id number] Urgent Cat Scan 11/15/23 12:42 Completed XR chest 1V portable [id number] Urgent Exams 11/15/23 12:41 Completed Pending at discharge Category Date Time Status Blood Culture Stat Lab 11/15/23 16:38 Results Complete Blood Count w/Auto AM LABS Lab 11/18/23 04:00 Ordered Comprehensive Metabolic Panel AM LABS Lab 11/18/23 04:00 Ordered Radiology Impressions Chest X-Ray 11/15/23 12:41 IMPRESSION: No acute thoracic pathology. Abdomen/Pelvis CT 11/15/23 12:42 IMPRESSION: 1. Advanced cirrhosis and sequela of decompensated portal hypertension. 2. 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 COMMENTS: Consistent with the [employer]'s Incidental Findings Committee white paper (J Am James Radiol 2018): Any incidental renal lesion less than 1 cm or classified as too small to characterize, or any incidental cystic renal lesion characterized as simple-appearing, is likely benign. No follow-up imaging is recommended for these lesions per consensus recommendations based on imaging criteria. Laboratory Results WBC 2.69 10^3/uL (3.29-11.43) L 11/17/23 05:56 RBC 3.86 10^6/uL (3.85-5.65) 11/17/23 05:56 Hgb 12.60 g/dL (11.27-16.99) 11/17/23 05:56 Hct 37.0 % (37-53) 11/17/23 05:56 MCV 95.9 fl (82-101) 11/17/23 05:56 MCH 32.6 pg (27-33) 11/17/23 05:56 MCHC 34.1 g/dL (30-55) 11/17/23 05:56 RDW 15.2 % (12.1-15.1) H 11/17/23 05:56 Plt Count 38 10^3/cmm (157-399) L 11/17/23 05:56 MPV 11.4 fL (7.4-10.4) H 11/17/23 05:56 Neut % (Auto) 81.0 % 11/17/23 05:56 Lymph % (Auto) 10.4 % 11/17/23 05:56 [place] % (Auto) 8.2 % 11/17/23 05:56 Eos % (Auto) 0.0 % 11/17/23 05:56 Baso % (Auto) 0.0 % 11/17/23 05:56 Neut # (Auto) 2.18 10^3/uL (1.8-7.7) 11/17/23 05:56 Lymph # (Auto) 0.3 10^3/uL (0.8-4.8) L 11/17/23 05:56 [place] # (Auto) 0.2 10^3/uL (0.2-0.9) 11/17/23 05:56 Eos # (Auto) 0.0 10^3/uL (0.0-0.8) 11/17/23 05:56 Baso # (Auto) 0.0 10^3/uL (0.0-0.1) 11/17/23 05:56 Nucleated RBC % (auto) 0 % 11/17/23 05:56 Nucleated RBCs # 0.0 /100WBC 11/17/23 05:56 Peripher Smr Path Cons Sent for review 11/16/23 06:33 PT 17.90 SECONDS (12.1-14.9) H 11/15/23 12:26 INR 1.43 (0.8-1.2) H 11/15/23 12:26 APTT 35.8 SECONDS (23.9-36.7) 11/15/23 12:26 Sodium 138 mmol/L (136-145) 11/17/23 05:56 Potassium 3.3 mmol/L (3.5-5.1) L 11/17/23 05:56 Chloride 103 mmol/L (98-107) 11/17/23 05:56 Carbon Dioxide 22 mmol/L (22-29) 11/17/23 05:56 Anion Gap 16.3 (5-19) 11/17/23 05:56 BUN 8 mg/dL (8-23) 11/17/23 05:56 Creatinine 0.6 mg/dL (0.7-1.2) L 11/17/23 05:56 GFR Calculation 134.4 mL/min (90-130) H 11/17/23 05:56 Glucose 168 mg/dL (65-115) H 11/17/23 05:56 POC Glucose 154 mg/dL (70-110) H 11/17/23 06:39 Calculated Osmolality 288 mOsm/kg (285-295) 11/17/23 05:56 Lactic Acid 3.4 mmol/L (0.5-2.2) H 11/15/23 12:26 Lactic Acid (Sepsis) 3.9 mmol/L (0.5-2.2) H 11/15/23 15:20 Calcium 9.1 mg/dL (8.5-10.5) 11/17/23 05:56 Phosphorus 2.9 mg/dL (2.5-4.5) 11/16/23 06:33 Magnesium 2.0 mg/dL (1.7-2.3) 11/16/23 06:33 Total Bilirubin 2.5 mg/dL (0.15-1.2) H 11/17/23 05:56 AST 35 U/L (0-40) 11/17/23 05:56 ALT 21 U/L (0-41) 11/17/23 05:56 Alkaline Phosphatase 74 U/L (40-130) 11/17/23 05:56 Ammonia 21 umol/L (16-60) 11/15/23 12:26 Creatine Kinase 69 U/L (39-308) 11/15/23 12:26 NT-Pro-B Natriuret Pep 616 pg/mL (0-125) H 11/15/23 12:26 Total Protein 7.3 g/dL (6.6-8.7) 11/17/23 05:56 Albumin 3.9 g/dL (3.5-5.2) 11/17/23 05:56 Globulin 3.4 g/dL (1.3-4.6) 11/17/23 05:56 Lipase 73 U/L (13-60) H 11/15/23 12:26 TSH 1.25 uIU/mL (0.27-4.20) 11/16/23 06:33 Urine Color Yellow (Yellow) 11/15/23 13:32 Urine Appearance Slightly cloudy (CLEAR) 11/15/23 13:32 Urine pH 8 (5-7) H 11/15/23 13:32 Ur Specific [place] 1.015 (1.005-1.030) 11/15/23 13:32 Urine Protein Neg (Negative) 11/15/23 13:32 Urine Glucose (UA) Norm (Normal) 11/15/23 13:32 Urine Ketones 2+ (Negative) H 11/15/23 13:32 Urine Blood Neg (Negative) 11/15/23 13:32 Urine Nitrate Negative (Negative) 11/15/23 13:32 Urine Bilirubin Neg (Negative) 11/15/23 13:32 Urine Urobilinogen Norm mg/dL (Negative) 11/15/23 13:32 Ur Leukocyte Esterase Negative (Negative) 11/15/23 13:32 Urine RBC None /hpf (0-2) 11/15/23 13:32 Urine WBC 0-4 /hpf (0-5) H 11/15/23 13:32 Ur Squamous Epith Cells 0-4 /hpf (0-5) H 11/15/23 13:32 Amorphous Sediment 3+ /hpf 11/15/23 13:32 Urine Bacteria Trace /hpf (NONE) 11/15/23 13:32 Adenovirus (PCR) Not detected (NOT DETECT) 11/16/23 11:15 C. pneumoniae DNA (PCR) Not detected (NOT DETECT) 11/16/23 11:15 Coronavirus 229E (PCR) Not detected (NOT DETECT) 11/16/23 11:15 H. pylori IgG Antibody Negative (Negative) 11/15/23 12:26 Human Metapneumovir PCR Not detected (NOT DETECT) 11/16/23 11:15 Influenza A (H1) PCR Not detected (NOT DETECT) 11/16/23 11:15 Influ A (H1/09) PCR Not detected (NOT DETECT) 11/16/23 11:15 Influenza A (H3) PCR Not detected (NOT DETECT) 11/16/23 11:15 Influenza Type A (PCR) Not detected (NOT DETECT) 11/16/23 11:15 Influenza Type B (PCR) Not detected (NOT DETECT) 11/16/23 11:15 M. pneumoniae (PCR) Not detected (NOT DETECT) 11/16/23 11:15 Parainfluenza 1 (PCR) Not detected (NOT DETECT) 11/16/23 11:15 Parainfluenza 2 (PCR) Not detected (NOT DETECT) 11/16/23 11:15 Parainfluenza 3 (PCR) Not detected (NOT DETECT) 11/16/23 11:15 Parainfluenza 4 (PCR) Not detected (NOT DETECT) 11/16/23 11:15 RSV Type A (PCR) Not detected (NOT DETECT) 11/16/23 11:15 RSV Type B (PCR) Not detected (NOT DETECT) 11/16/23 11:15 Entero/Rhino (PCR) Not detected (NOT DETECT) 11/16/23 11:15 SARS-CoV-2 (PCR) Not detected (NOT DETECT) 11/16/23 11:15 Vitals Last Vital Signs Temp 99.0 F 11/17/23 04:00 Pulse 69 11/17/23 07:26 Resp 17 11/17/23 07:26 BP 118/61 11/17/23 07:26 Pulse Ox 92 11/17/23 07:26 O2 Del Method Room Air 11/17/23 07:26 Discharge Plan Discharge Patient Disposition: Home Condition: Stable Prescriptions: New cefdinir 300 mg capsule 300 mg PO Q12H 10 Days Qty: 20 0RF ondansetron 4 mg tablet,disintegrating 4 mg PO DAILY 7 Days Qty: 20 0RF Continued furosemide 40 mg tablet 40 mg PO DAILY cetirizine 10 mg tablet 10 mg PO DAILY PRN (Reason: ALLERGIES) methadone 10 mg tablet See Rx Instructions .ROUTE .COMPLEX Rx Instructions: TAKE 1 TABLET BY MOUTH ONCE DAILY IN THE EVENING. THIS IS IN ADDITION TO THE 5MG IN THE MORNING FOR CHRONIC BACK PAIN. omeprazole 40 mg capsule,delayed release(DR/EC) 10 mg PO DAILY spironolactone 25 mg tablet 25 mg PO BID Klor-Con M20 20 mEq tablet,ER particles/crystals 20 meq PO DAILY montelukast 10 mg tablet 10 mg PO DAILY hydroxyzine HCl 25 mg tablet 25 mg PO DAILY zolpidem 5 mg tablet See Rx Instructions .ROUTE .COMPLEX Rx Instructions: TAKE 1/2 (ONE-HALF) TABLET BY MOUTH AT BEDTIME FOR 28 DAYS NEEDED FOR SLEEP, WEANING DOSE. methadone 5 mg tablet See Rx Instructions .ROUTE .COMPLEX Rx Instructions: TAKE 1 TABLET BY MOUTH ONCE DAILY IN THE MORNING NEEDED FOR PAIN. THIS IS IN ADDITION TO THE 10MG RX IN THE EVENING CHRONIC BACK PAIN. fluoxetine 20 mg capsule 20 mg PO DAILY Constulose 10 gram/15 mL solution See Rx Instructions .ROUTE .COMPLEX Rx Instructions: TAKE FOUR TEASPOONSFUL (20 ML) BY MOUTH EVERY 6 HOURS. Xifaxan 550 mg tablet 550 mg PO BID Jardiance 25 mg tablet 25 mg PO DAILY Discharge Orders: Discharge Order (Routine); Ordered 11/17/23 Ordered By: Hamilton Dowd Referrals: [facility], hepatology [Other] - 1 week Justice Hooker MD [Family Provider] - 4-7 days (We have notified your physician's clinic of the need for a follow-up appointment to be scheduled. If you have not heard from them within the next 2 business days, please call them directly. ) Yanira Zuluaga MD [Referring] - (We have notified your physician's clinic of the need for a follow-up appointment to be scheduled. If you have not heard from them within the next 2 business days, please call them directly. ) Discharge Diet: As Directed Patient Instructions: Cefdinir (By mouth), Cirrhosis of the Liver (GEN), Peritonitis (GEN), Opioid Safety Activity Restrictions/Additional Instructions: Follow-up with your primary provider as well as with hepatology for reassessment after decompensated liver cirrhosis, worsening symptoms of portal hypertensive gastropathy, consideration of possible medication adverse effect contributing to recurrent nausea and vomiting, possibly spironolactone, fluoxetine could cause the symptoms as good methadone. Please stop spironolactone for now, continue fluoxetine at reduced dose of 10 mg also due to risk of bleeding with your platelets decreased down to 38,000. Avoid any aspirin for now unless prescribed by a physician due to increasing risk of bleeding. Have your primary doctor follow-up your blood counts. Peripheral smear has been requested and is pending, please have your primary doctor check on the results. Spread out your meals into much smaller portions stretched throughout the day, eating small amounts at a time. Follow-up with your primary provider and hepatology with regards to possible SBP. Complete antibiotic treatment. Seek medical attention in case of any worsening or new concerning symptoms. Discharge Attestations Time Spent in Discharge Care*: greater than 30 min Quality Metrics Clinical Quality Measures [ No reported AMI, CVA or VTE this stay] Coding Level of Care Code 98817 Total time (in minutes) for Discharge: 50 Diagnoses Decompensated hepatic cirrhosis K72.90; K74.60 Portal hypertensive gastropathy K76.6; K31.89 Hyperbilirubinemia E80.6 Nausea and vomiting R11.2
[2023-11-17 12:34] VITALS: BP 118/61; PULSE 69; RESP 17; O2SAT 92
== END 2023-11-17 11:30 | disposition home or self-care (01) ==
LOC: ER 17:39 → MEDSURG 18:43
PROVIDERS: Admitting Provider Internal Medicine; Emergency Provider Physician Assistant; Family Provider Internal Medicine; Visit Provider Internal Medicine
DX: K72.90 Hepatic failure, unspecified without coma (principal); K74.60 Unspecified cirrhosis of liver; K76.6 Portal hypertension; K31.89 Other diseases of stomach and duodenum; E80.6 Other disorders of bilirubin metabolism; R11.2 Nausea with vomiting, unspecified
CPT/HCPCS: 36415; 36416; 71045; 74177; 80053; 80503; 81001; 82140; 82550; 82962; 83605; 83690; 83735; 83880; 84100; 84443; 85025; 85610; 85730; 86677; 87040; 87486; 87581; 87633; 96365; 96367; 96372; 96375; 96376; 99285; C9113; G0378; J0696; J1815; J1940; J2405; J2765; J7040; P9046; Q9967

== ENCOUNTER 2023-11-24 12:20 | Outpatient (CLI) | payer MEDICARE, SELFPAY ==
[2023-11-24 12:47] LABS: Basophils % 0.8 %; Eosinophils # 0.1 10^3/uL (0.0-0.8); Eosinophils % 5.3 %; Hematocrit 37.3 % (37-53); Lymphocytes # 0.6 10^3/uL (0.8-4.8); Lymphocytes % 20.7 %; Mean Corpuscular Hemoglobin 32.5 pg (27-33); Mean Corpuscular Volume 95.4 fl (82-101); Mean Platelet Volume 10.8 fL (7.4-10.4); Monocytes # 0.4 10^3/uL (0.2-0.9); Monocytes % 14.3 %; Neutrophils # 1.57 10^3/uL (1.8-7.7); Neutrophils % 58.9 %; Nucleated Red Blood Cells % 0 %; Platelet Count 55 10^3/cmm (157-399); Red Blood Count 3.91 10^6/uL (3.85-5.65); Red Cell Distribution Width 16.2 % (12.1-15.1); White Blood Count 2.66 10^3/uL (3.29-11.43)
[2023-11-24 13:02] LABS: INR 1.64 (0.8-1.2)
[2023-11-24 13:10] LABS: Alanine Aminotransferase 25 U/L (0-41); Albumin Level 3.7 g/dL (3.5-5.2); Alkaline Phosphatase 94 U/L (40-130); Anion Gap 11.3 (5-19); Aspartate Amino Transferase 43 U/L (0-40); Blood Urea Nitrogen 12 mg/dL (8-23); Calcium 8.9 mg/dL (8.5-10.5); Carbon Dioxide 29 mmol/L (22-29); Chloride 100 mmol/L (98-107); Globulin 3.3 g/dL (1.3-4.6); Glomerular Filtration Rate 165.9 mL/min (90-130); Glucose 102 mg/dL (65-115); Osmolality Calculated 284 mOsm/kg (285-295); Potassium 3.3 mmol/L (3.5-5.1); Sodium 137 mmol/L (136-145); Total Bilirubin 2.1 mg/dL (0.15-1.2)
== END 2023-11-24 12:21 | disposition home or self-care (01) ==
LOC: LAB 12:20
PROVIDERS: Family Provider Internal Medicine; PCP Nurse Practitioner Family
DX: K70.30 Alcoholic cirrhosis of liver without ascites (principal)
CPT/HCPCS: 36415; 80053; 82248; 85025; 85610

== ENCOUNTER 2023-12-29 11:49 | Emergency (ER) | payer MEDICARE, SELFPAY ==
[2023-12-29 11:50] VITALS: BP 112/67; PULSE 83; RESP 18; TEMP 36.3; O2SAT 96
--- NOTE | 2023-12-29 12:33 | ED_ITS ---
HPI - Nausea/Vomiting/Diarrhea 2 General: Chief complaint: Nausea/Vomiting/Diarrhea Stated complaint: weak, nausea, can't eat vomiting Time Seen by Provider: 12/29/23 12:10 Source: patient and family Mode of arrival: ambulatory Limitations: no limitations History of Present Illness: This patient presents to the emerged part because he has felt ill since Tuesday with very limited ability to eat or drink. states he throws up when he attempts to eat. No diarrhea. No fevers. No known exposure to infectious disease. He has a longstanding history of nonalcoholic hepatitis and had cirrhosis and liver failure at 1 time with ascites but has recovered and has been taken off the transplant list. He has had multiple workups for similar symptoms in the past without any significant pathology. Other than the known cirrhosis. He has not had any change in his medications. He states that there is no specific inciting food type other than pork seems to cause him problems. He has had a prior cholecystectomy. He denies any alcohol use. He states he does smoke marijuana on occasion but not on a daily basis and that is never seemingly associated with any of his symptoms. He has had significant weight loss but that is been associated with his recovery from cirrhosis. No other family members have any similar symptoms. Denies any blood or black tarry stools. He denies any chalk or light-colored stools. He denies any concomitant chest pain shortness of breath etc. MD elicited complaint: nausea and vomiting Associated nausea: Yes Associated symtoms: Reports nausea; Denies change in vision, chest pain, dysuria, headache(s), palpitations or syncope Related Data Home Medications Medication Instructions Recorded Confirmed cetirizine 10 mg tablet 10 mg PO DAILY PRN ALLERGIES 11/15/23 12/29/23 empagliflozin 25 mg tablet 25 mg PO DAILY 11/15/23 12/29/23 (Jardiance) fluoxetine 20 mg capsule 20 mg PO DAILY 11/15/23 12/29/23 furosemide 40 mg tablet 40 mg PO DAILY 11/15/23 12/29/23 hydroxyzine HCl 25 mg tablet 25 mg PO DAILY 11/15/23 12/29/23 lactulose 10 gram/15 mL oral See Rx Instructions .Route .COMPLEX 11/15/23 12/29/23 solution (Constulose) methadone 10 mg tablet See Rx Instructions .Route .COMPLEX 11/15/23 12/29/23 methadone 5 mg tablet See Rx Instructions .Route .COMPLEX 11/15/23 12/29/23 montelukast 10 mg tablet 10 mg PO DAILY 11/15/23 12/29/23 potassium chloride 20 mEq 20 meq PO DAILY 11/15/23 12/29/23 tablet,extended release(part/cryst) (Klor-Con M) rifaximin 550 mg tablet (Xifaxan) 550 mg PO BID 11/15/23 12/29/23 spironolactone 25 mg tablet 25 mg PO BID 11/15/23 12/29/23 zolpidem 5 mg tablet See Rx Instructions .Route .COMPLEX 11/15/23 12/29/23 Previous Rx's Medication Instructions Recorded famotidine 40 mg tablet (Pepcid) 40 mg PO DAILY #30 tabs 12/29/23 ondansetron HCl 4 mg tablet 4 mg PO Q6H PRN nausea and 12/29/23 vomiting #30 tabs Allergies Allergy/AdvReac Type Severity Reaction Status Date / Time codeine Allergy ADR-Halluci Verified 11/15/23 13:53 nating hydrocodone Allergy ADR-Halluci Verified 11/15/23 13:53 nating morphine Allergy ADR-Halluci Verified 11/15/23 13:53 nating oxycodone Allergy ADR-Halluci Verified 11/15/23 12:22 nating Review of Systems 2 Const: Denies: fever(s) or chills Eyes: Denies: change in vision ENMT: Denies: odynophagia, nasal discharge or nasal congestion Card: Denies: chest pain, palpitations, lightheadedness, syncope or pre- syncope Resp: Denies: dyspnea, productive cough or non-productive cough GI: Reports: nausea and vomiting; Denies: hematemesis, diarrhea, hematochezia, melena or steatorrhea : Denies: flank pain, difficulty urinating or dysuria Musc: Denies: neck pain, back pain, extremity pain or extremity swelling Skin/Breast: Denies: rash Neuro: Denies: headache(s), numbness in extremities or weakness in extremities Tu/Lymph: Denies: easy bruising or easy bleeding PFSH ED 2 PFSH: Medical History Non-alcoholic cirrhosis Social History Marital status: Physical Exam 2 Narrative: EXAM NARRATIVE: Appears to be comfortable answers questions a goal-directed fashion and is in no acute distress. Const: COMMON NORMALS: no acute distress, patient oriented x3, healthy appearing and alert GENERAL APPEARANCE: cooperative and comfortable HENMT: COMMON NORMALS: normocephalic, Normal nasal mucous membranes and turbinates present, moist oral mucous membranes and oropharynx normal HEAD & SCALP: normocephalic NOSE: Normal nasal mucous membranes and turbinates present Eye: COMMON NORMALS: Equal, round and reactive pupils present, conjunctivae normal and no scleral icterus CONJUNCTIVA: Yes conjunctivae normal PUPIL: Yes Equal, round and reactive pupils present Neck/C-Spine: COMMON NORMALS: full ROM, no JVD and Thyroid normal THYROID: Thyroid normal Chest: COMMONS NORMALS: normal inspection of the chest Resp: COMMON NORMALS: normal respiratory effort, No use of accessory muscles and clear to auscultation bilaterally AUSCULTATION: clear to auscultation bilaterally Cardio: COMMON NORMALS: no JVD, regular rate, regular rhythm, No murmurs present (Cardio) and Peripheral pulses 2+ throughout RATE: regular rate R HYTHM: regular rhythm PERIPHERAL PULSES: Peripheral pulses 2+ throughout GI: COMMON NORMALS: Normal to inspection, nondistended, normoactive bowel sounds present, Soft to palpation, non-tender, no masses and no bruits P ALPATION: Yes Soft to palpation Back/Pelvis: COMMON NORMALS: thoracic and lumbar spine normal to inspection, no thoracic nor lumbar tenderness and thoraco-lumbar ROM normal Extremity: COMMON NORMALS: normal to inspection, full ROM, capillary refill normal, no joint enlargement, no calf tenderness and no pedal edema Neuro: COMMON NORMALS: patient oriented x3, moves all extremities, no focal motor deficits and no sensory deficits noted SENSORIUM/ORIENTATION: Yes alert Psych: COMMON NORMALS: mental status grossly normal Skin: COMMON NORMALS: no rashes or lesions noted, turgor normal and no jaundice GENERAL SKIN EXAM: no rashes or lesions noted and turgor normal Course 2 Reevaluation(s): Reevaluation #1: Laboratories and imaging noted. Minimal ascitic fluid certainly nothing that would be likely contributing to a possible SBP. His total bilirubin is significantly elevated over most recent findings. Will go ahead and call his network management specialist at [facility] and review findings and his current presentation for further input. Reevaluation #2: Reviewed all findings with the patient and family. The only concern is that his total bili has risen from prior values recently noted in the chart. This may be related to normal waxing and waning of his chronic liver disease and certainly nothing else at this time suggest obstructive pattern on CT etc. We also discussed the need for fluid intake and also protein calorie intake and we discussed some options to include protein shakes etc. with the family. The family voiced understanding and were appreciative of all care. He is stable at this time for discharge with outpatient follow-up from his network management specialist. Consultations: Consultation #1: Was able to discuss the case with one of the consulting network management specialist at [facility] who works with his primary network management specialist. We reviewed his current findings and their implications. He also had access to old records. Given his current status does not suggest any ongoing emergency medical condition that requires transfer and/or admission the plan will be to command antiemetics and they will follow him up from the hepatology clinic in the next several days. Time: 16:16 Vital Signs: Vital signs: Vital Signs Temperature 97.4 F L 12/29/23 17:47 Pulse Rate 79 12/29/23 17:47 Respiratory Rate 15 12/29/23 17:47 Blood Pressure 118/69 12/29/23 17:47 Pulse Oximetry 98 12/29/23 17:47 Oxygen Delivery Me thod Room Air 12/29/23 17:46 MDM - Nausea/Vomiting/Diarrhea Medical Decision Making This patient presented as noted in the history of present illness. He has had symptoms similar to this for some time perhaps months. No seemingly pattern to his symptoms but over the past several days has reported that he has had less success with eating but can drink some fluids. There is no pain associated with his current presentation. No fevers chills etc. He does take a proton pump inhibitor and has taken that for many years is unclear why he takes that medications. Differential included potential for SBP, bowel obstruction, worsening liver disease, other potential surgical abdominal process, gastritis, possible marijuana related hyperemesis. Laboratories obtained revealed only significance of a elevated total bilirubin over most recent values. CT scan was obtained which was reassuring without any evidence of change in his biliary tract to include obvious intrahepatic obstruction, evidence of any significant ascites that was suggest possible SBP etc. Consultations were obtained from hepatology at [facility] and reviewed current findings. They did not feel that any acute was likely at the cause and certainly his clinical picture did not suggest that. He received IV hydration and antiemetics and H2 blockers in the emergency department and felt subjectively improved. Given the above the patient was stable to be discharged with outpatient follow- up with good return precautions. I detailed diet discussion was also had with the family and the patient. Lab Data I reviewed the patient's lab results. 12/29/23 12:53 12/29/23 13:21 Radiology Impressions Abdomen/Pelvis CT 12/29/23 12:57 IMPRESSION: 1. Previously described ascites has improved since 11/15/2023. Only trace fluid about the liver today. No drainable ascites. 2. No other significant changes. 3. Cirrhotic liver with splenomegaly. 4. Evidence of portal venous hypertension. 5. 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 6. Upper abdominal varices with splenorenal shunt. 7. Mild prostate enlargement. Recommend correlation PSA Laboratory Results WBC 5.09 10^3/uL (3.29-11.43) 12/29/23 12:53 RBC 4.90 10^6/uL (3.85-5.65) 12/29/23 12:53 Hgb 15.80 g/dL (11.27-16.99) 12/29/23 12:53 Hct 44.8 % (37-53) 12/29/23 12:53 MCV 91.4 fl (82-101) 12/29/23 12:53 MCH 32.2 pg (27-33) 12/29/23 12:53 MCHC 35.3 g/dL (30-55) 12/29/23 12:53 RDW 15.0 % (12.1-15.1) 12/29/23 12:53 Plt Count 65 10^3/cmm (157-399) L 12/29/23 12:53 MPV 10.3 fL (7.4-10.4) 12/29/23 12:53 Neut % (Auto) 74.0 % 12/29/23 12:53 Lymph % (Auto) 10.4 % 12/29/23 12:53 Oliver % (Auto) 13.6 % 12/29/23 12:53 Eos % (Auto) 1.8 % 12/29/23 12:53 Baso % (Auto) 0.0 % 12/29/23 12:53 Neut # (Auto) 3.77 10^3/uL (1.8-7.7) 12/29/23 12:53 Lymph # (Auto) 0.5 10^3/uL (0.8-4.8) L 12/29/23 12:53 Oliver # (Auto) 0.7 10^3/uL (0.2-0.9) 12/29/23 12:53 Eos # (Auto) 0.1 10^3/uL (0.0-0.8) 12/29/23 12:53 Baso # (Auto) 0.0 10^3/uL (0.0-0.1) 12/29/23 12:53 Nucleated RBC % (auto) 0 % 12/29/23 12:53 Nucleated RBCs # 0.0 /100WBC 12/29/23 12:53 Sodium 132 mmol/L (136-145) L 12/29/23 13:21 Potassium 3.7 mmol/L (3.5-5.1) 12/29/23 13:21 Chloride 96 mmol/L (98-107) L 12/29/23 13:21 Carbon Dioxide 21 mmol/L (22-29) L 12/29/23 13:21 Anion Gap 18.7 (5-19) 12/29/23 13:21 BUN 20 mg/dL (8-23) 12/29/23 13:21 Creatinine 0.6 mg/dL (0.7-1.2) L 12/29/23 13:21 GFR Calculation 134.4 mL/min (90-130) H 12/29/23 13:21 Glucose 136 mg/dL (65-115) H 12/29/23 13:21 Calculated Osmolality 279 mOsm/kg (285-295) L 12/29/23 13:21 Calcium 10.6 mg/dL (8.5-10.5) H 12/29/23 13:21 Magnesium 2.1 mg/dL (1.7-2.3) 12/29/23 13:21 Total Bilirubin 6.2 mg/dL (0.15-1.2) H 12/29/23 13:21 AST 60 U/L (0-40) H 12/29/23 13:21 ALT 42 U/L (0-41) H 12/29/23 13:21 Alkaline Phosphatase 118 U/L (40-130) 12/29/23 13:21 Total Protein 7.4 g/dL (6.6-8.7) 12/29/23 13:21 Albumin 3.4 g/dL (3.5-5.2) L 12/29/23 13:21 Globulin 4.0 g/dL (1.3-4.6) 12/29/23 13:21 Lipase 60 U/L (13-60) 12/29/23 13:21 All radiology interpretation(s) finalized by discharge Discharge Plan Discharge Patient Disposition: Home Clinical Impression: Chronic liver disease and cirrhosis Nausea and vomiting Qualifiers: Vomiting type: unspecified Qualified Code(s): R11.2 - Nausea with vomiting, unspecified Condition: Stable Prescriptions: New ondansetron HCl 4 mg tablet 4 mg PO Q6H PRN (Reason: nausea and vomiting) Qty: 30 2RF Pepcid 40 mg tablet 40 mg PO DAILY Qty: 30 2RF Discontinued omeprazole 40 mg capsule,delayed release(DR/EC) 10 mg PO DAILY No Action furosemide 40 mg tablet 40 mg PO DAILY cetirizine 10 mg tablet 10 mg PO DAILY PRN (Reason: ALLERGIES) methadone 10 mg tablet See Rx Instructions .ROUTE .COMPLEX Rx Instructions: TAKE 1 TABLET BY MOUTH ONCE DAILY IN THE EVENING. THIS IS IN ADDITION TO THE 5MG IN THE MORNING FOR CHRONIC BACK PAIN. spironolactone 25 mg tablet 25 mg PO BID potassium chloride [Klor-Con M20] 20 mEq tablet,ER particles/crystals 20 meq PO DAILY montelukast 10 mg tablet 10 mg PO DAILY hydroxyzine HCl 25 mg tablet 25 mg PO DAILY zolpidem 5 mg tablet See Rx Instructions .ROUTE .COMPLEX Rx Instructions: TAKE 1/2 (ONE-HALF) TABLET BY MOUTH AT BEDTIME FOR 28 DAYS NEEDED FOR SLEEP, WEANING DOSE. methadone 5 mg tablet See Rx Instructions .ROUTE .COMPLEX Rx Instructions: TAKE 1 TABLET BY MOUTH ONCE DAILY IN THE MORNING NEEDED FOR PAIN. THIS IS IN ADDITION TO THE 10MG RX IN THE EVENING CHRONIC BACK PAIN. fluoxetine 20 mg capsule 20 mg PO DAILY lactulose [Constulose] 10 gram/15 mL solution See Rx Instructions .ROUTE .COMPLEX Rx Instructions: TAKE FOUR TEASPOONSFUL (20 ML) BY MOUTH EVERY 6 HOURS. Xifaxan 550 mg tablet 550 mg PO BID Jardiance 25 mg tablet 25 mg PO DAILY Discharge Orders: Discharge ED (Routine); Ordered 12/29/23 Ordered By: Efrain Castellanos Referrals: Antonina Mckeon TRAIN STARTER [Primary Care Provider] - Discharge Diet: Advance as tolerated and Full LIquid Discharge Activity: Increase activity as tolerated Patient Instructions: Opioid Safety, Pain Management Activity Restrictions/Additional Instructions: As we discussed your CT scan did not show any serious changes today. Your total bilirubin is elevated and the network management specialist at [facility] are going to contact you to follow-up on this change. We have made a couple of changes in your medications to include antinausea medicine as well as medications to help with your acid production. We also discussed the use of liquid protein to help with nutrition in addition to water and sports drinks. Try to get somewhere between 80 and 100 g of protein per day. [facility] should contact you next few days to discuss further follow-up. If you have any new or other changes or other concerns you are welcome to return to the emergency department anytime. Coding Level of Care Code ED Instrument Designer for Hebert Mcneal
--- NOTE | 2023-12-29 12:57 | CT_ITS ---
WS: [id number] CT ABDOMEN PELVIS TECHNIQUE: Contrast-enhanced CT of the abdomen and pelvis with coronal and sagittal reformatted image s. CLINICAL INFORMATION: recurrent symptoms-hx of MEADE COMPARISON: CT 11/15/2023 DLP: 588.[address] scans at [facility] use at least one of these dose optimization techniques: automated e xposure control; mA and/or kV adjustment per patient size (includes targeted exams where dose is matc hed to clinical indication); or iterative reconstruction. FINDINGS: Advanced cirrhotic configuration of the liver. Splenomegaly. This is similar to previous. Chronic diamond n portal vein thrombosis also present on prior examination. Associated cavernous transformation at th e cecily hepatis with portal systemic collaterals. IVC is patent. Hepatic veins appear patent. Splenom egaly measures 16.6 cm. Small esophageal canal hernia. Upper abdominal varices with splenorenal shunt .. Mesenteric edema with collateral vessels and venous congestion in the mesentery. Trace fluid about the RIGHT hepatic lobe. No significant ascites. Calcified granuloma RIGHT upper lobe. Adrenal glands are normal. No hydronephrosis. Bilateral renal cysts the largest on the RIGHT measurin g 3.5 cm. Diffuse fatty atrophy of the pancreas. Mild prostate enlargement measuring 3.9 cm. Slight anterolisthesis L3 on L4. Interbody bony ankylosis L4-5. CT/CT abdomen pelvis w con* [id number] IMPRESSION: 1. Previously described ascites has improved since 11/15/2023. Only trace fluid about the liver today. No drainable ascites. 2. No other significant changes. 3. Cirrhotic liver with splenomegaly. 4. Evidence of portal venous hypertension. 5. 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 6. Upper abdominal varices with splenorenal shunt. 7. Mild prostate enlargement. Recommend correlation PSA
[2023-12-29 13:00] VITALS: BP 127/76; PULSE 77; RESP 15; O2SAT 97
[2023-12-29 13:02] LABS: Eosinophils # 0.1 10^3/uL (0.0-0.8); Eosinophils % 1.8 %; Hematocrit 44.8 % (37-53); Lymphocytes # 0.5 10^3/uL (0.8-4.8); Lymphocytes % 10.4 %; Mean Corpuscular HGB Conc 35.3 g/dL (30-55); Mean Corpuscular Hemoglobin 32.2 pg (27-33); Mean Corpuscular Volume 91.4 fl (82-101); Mean Platelet Volume 10.3 fL (7.4-10.4); Monocytes # 0.7 10^3/uL (0.2-0.9); Monocytes % 13.6 %; Neutrophils # 3.77 10^3/uL (1.8-7.7); Nucleated Red Blood Cells % 0 %; Platelet Count 65 10^3/cmm (157-399); White Blood Count 5.09 10^3/uL (3.29-11.43)
[2023-12-29] MEDS: famotidine 20 mg/2 mL INJ 40 MG IVP (13:26)
[2023-12-29] MEDS: lactated ringers 1,000 ML 999 ML IV (13:26)
[2023-12-29 13:43] LABS: Alanine Aminotransferase 42 U/L (0-41); Albumin Level 3.4 g/dL (3.5-5.2); Alkaline Phosphatase 118 U/L (40-130); Anion Gap 18.7 (5-19); Aspartate Amino Transferase 60 U/L (0-40); Blood Urea Nitrogen 20 mg/dL (8-23); Calcium 10.6 mg/dL (8.5-10.5); Carbon Dioxide 21 mmol/L (22-29); Chloride 96 mmol/L (98-107); Creatinine Clr Calc Pharmacy 84.0169; Glomerular Filtration Rate 134.4 mL/min (90-130); Glucose 136 mg/dL (65-115); Lipase 60 U/L (13-60); Magnesium 2.1 mg/dL (1.7-2.3); Osmolality Calculated 279 mOsm/kg (285-295); Potassium 3.7 mmol/L (3.5-5.1); Sodium 132 mmol/L (136-145); Total Bilirubin 6.2 mg/dL (0.15-1.2); Total Protein 7.4 g/dL (6.6-8.7)
[2023-12-29 14:00] VITALS: BP 127/76; PULSE 82; RESP 14; O2SAT 100
[2023-12-29] MEDS: iohexol 350 mg/mL 500 mL Btl (per mL) IV (14:04)
--- NOTE | 2023-12-29 14:44 | PC.PHAR ---
PT STATES LAST DAY MEDS WERE TAKEN, WAS TUESDAY. ATTEMPS TO TAKE MEDICATION AFTER THAT, CAUSED PT TO VOMIT GREEN SLIME.
[2023-12-29 14:58] VITALS: BP 123/66; PULSE 76; RESP 15; O2SAT 96
[2023-12-29] MEDS: ondansetron 2 mg/ML SDV 2 mL 4 MG IVP (17:39)
[2023-12-29 17:46] VITALS: BP 118/69; PULSE 79; RESP 15; O2SAT 98
[2023-12-29 17:47] VITALS: BP 118/69; PULSE 79; RESP 15; TEMP 36.3; O2SAT 98
== END 2023-12-29 17:46 | disposition home or self-care (01) ==
PROVIDERS: Emergency Provider Emergency Medicine; PCP Nurse Practitioner Family
DX: K74.60 Unspecified cirrhosis of liver (principal); R11.2 Nausea with vomiting, unspecified; Z79.891 Long term (current) use of opiate analgesic
CPT/HCPCS: 74177; 80053; 83690; 83735; 85025; 96374; 96375; 99285; J2405; J3490; J7120; Q9967

== ENCOUNTER → 2024-04-03 14:27 | Outpatient (BNVA) | payer MEDICARE, SELFPAY | PROVIDERS: PCP Family Medicine; Visit Provider Family Medicine | DX: E11.9 Type 2 diabetes mellitus without complications (principal); K74.60 Unspecified cirrhosis of liver; K72.90 Hepatic failure, unspecified without coma; K76.0 Fatty (change of) liver, not elsewhere classified; R11.2 Nausea with vomiting, unspecified; K76.6 Portal hypertension; K31.89 Other diseases of stomach and duodenum; K76.9 Liver disease, unspecified | CPT/HCPCS: 80053; 82043; 82105; 83036; 84443; 85025; 85610 ==

== ENCOUNTER 2024-08-02 06:00 | Outpatient (RCR) | payer MEDICARE, SELFPAY | END 2024-08-13 23:59 | disposition home or self-care (01) | LOC: MPT 06:00 | PROVIDERS: Visit Provider Family Medicine | DX: R26.81 Unsteadiness on feet (principal); R42 Dizziness and giddiness | CPT/HCPCS: 97110; 97112; 97162 ==

== ENCOUNTER 2024-08-15 14:10 | Outpatient (RCR) | payer MEDICARE, SELFPAY | END 2024-09-12 23:59 | disposition home or self-care (01) | LOC: MPT 14:10 | PROVIDERS: PCP Family Medicine; Visit Provider Family Medicine | DX: R42 Dizziness and giddiness (principal); R26.81 Unsteadiness on feet | CPT/HCPCS: 97110; 97112 ==

== ENCOUNTER 2024-09-06 13:44 | Outpatient (CLI) | payer MEDICARE, SELFPAY ==
--- NOTE | 2024-09-06 13:48 | CT_ITS ---
WS: [id number] CT ABDOMEN WITH AND WITHOUT CONTRAST HISTORY: CIRRHOSIS OF LIVER W/O ASCITES Multiphase 3 mm abdominal imaging. Oral contrast has not been provided. Coronal and sagittal reformats are submitted. All CT scans at [facility] use at least one of these dose optimization techniques: automated exposure control; mA and/or kV adjustment per patient size (includes targeted exams where dose is matched to clinical indication); or iterative reconstruction. IV CONTRAST: Omnipaque 350; 100 mL IV. Oral contrast: No DLP: 2154.47 mGy.cm COMPARISON: 12/29/2023, 11/15/2023 Lower thorax: Chronic appearing changes at the lung bases. Interstitial thickening from fibrosis. No pneumonia or solid mass. Benign granuloma RIGHT lung base. Mild cardiomegaly. Mild RIGHT heart enlargement. Small hiatal hernia. Liver/biliary system: Small cirrhotic liver. No masses are identified within the liver. Calcification in the peripheral liver. Portal vein is not enhancing consistent with portal vein thrombosis and cavernous transformation. Portal vein thrombosis extends into the proximal splenic vein. Gallbladder: Prior cholecystectomy. Pancreas: Mild pancreatic atrophy. No pancreatic duct dilatation. Spleen: Markedly enlarged spleen measures 18.9 cm in length which is similar to the prior exam. Numerous splenic and gastric varices are reidentified. Adrenal glands: Normal. Right kidney: Normal size kidney. 3.6 cm posterior RIGHT renal cyst. There are a few additional too small to characterize hypodensities in the cortex. Left kidney: Normal size kidney with no obstruction. Splenorenal shunt. Aorta: Mild atherosclerosis aorta. Mesenteric arteries are patent. Lymphadenopathy: None. Free fluid: There is a small amount of ascites in the upper abdomen. The amount of ascites has increased since the most recent study. There is also omental stranding which is probably related to ascites and not neoplastic disease. GI tract: Stomach is not obstructed. There is mild diffuse gastric wall thickening and duodenal wall thickening. No obstruction or ischemic changes in the visualized GI tract. Abdominal wall: Unremarkable abdominal wall. No hernia. Visualized osseous structures: Advanced degenerative changes in the lower thoracic and lumbar spines. Stable lytic area in L1 CT/CT abdomen wo/w con [id number] IMPRESSION: 1. Cirrhotic liver with ascites which has progressed since the prior studies. 2. Main portal vein thrombosis with cavernous transformation of the cecily hepa tis is chronic. 3. Extensive portosystemic collaterals, unchanged. Spleno renal shunt is noted . 4. Splenomegaly, stable. 5. Prior cholecystectomy. 6. Omental stranding and thickening is probably on the basis of cirrhosis and ascites. 7. RIGHT renal cyst. 8. No enhancing lesions within the liver.
== END 2024-09-06 13:45 | disposition home or self-care (01) ==
PROVIDERS: PCP Family Medicine; Visit Provider Internal Medicine Gastroenterology
DX: K74.60 Unspecified cirrhosis of liver (principal); R18.8 Other ascites; R93.5 Abnormal findings on diagnostic imaging of other abdominal regions, including retroperitoneum; Z96.89 Presence of other specified functional implants; R16.1 Splenomegaly, not elsewhere classified; Z90.49 Acquired absence of other specified parts of digestive tract; N28.1 Cyst of kidney, acquired; R91.8 Other nonspecific abnormal finding of lung field; J84.10 Pulmonary fibrosis, unspecified; I51.7 Cardiomegaly; K44.9 Diaphragmatic hernia without obstruction or gangrene; K76.89 Other specified diseases of liver; K86.89 Other specified diseases of pancreas; I86.4 Gastric varices; I86.8 Varicose veins of other specified sites; I70.0 Atherosclerosis of aorta; K31.89 Other diseases of stomach and duodenum; M47.894 Other spondylosis, thoracic region; M47.896 Other spondylosis, lumbar region; R93.7 Abnormal findings on diagnostic imaging of other parts of musculoskeletal system
CPT/HCPCS: 74170

== ENCOUNTER → 2024-10-02 11:00 | Outpatient (BNVA) | payer MEDICARE, SELFPAY | PROVIDERS: PCP Family Medicine; Visit Provider Family Medicine | DX: K74.60 Unspecified cirrhosis of liver (principal); K76.9 Liver disease, unspecified; I10 Essential (primary) hypertension; Z78.9 Other specified health status; E11.9 Type 2 diabetes mellitus without complications; K76.6 Portal hypertension; K31.89 Other diseases of stomach and duodenum; I85.00 Esophageal varices without bleeding; K76.0 Fatty (change of) liver, not elsewhere classified; I81 Portal vein thrombosis | CPT/HCPCS: 80053; 80061; 83036; 85610 ==

== ENCOUNTER → 2025-01-04 13:40 | Outpatient (BNVA) | payer MEDICARE, SELFPAY | PROVIDERS: PCP Family Medicine; Visit Provider Family Medicine | DX: Z12.5 Encounter for screening for malignant neoplasm of prostate (principal); K74.60 Unspecified cirrhosis of liver; K76.9 Liver disease, unspecified | CPT/HCPCS: 80053; G0103 ==

== ENCOUNTER → 2025-04-05 14:35 | Outpatient (BNVA) | payer MEDICARE, SELFPAY | PROVIDERS: PCP Family Medicine; Visit Provider Family Medicine | DX: I10 Essential (primary) hypertension (principal); E11.9 Type 2 diabetes mellitus without complications; K74.60 Unspecified cirrhosis of liver; K76.9 Liver disease, unspecified; K76.0 Fatty (change of) liver, not elsewhere classified; G89.29 Other chronic pain; M54.9 Dorsalgia, unspecified | CPT/HCPCS: 80053; 82105; 83036; 83540; 84439; 84443; 85025 ==

== ENCOUNTER 2025-05-02 09:57 | Outpatient (CLI) | payer MEDICARE, SELFPAY ==
--- NOTE | 2025-05-02 10:06 | US_ITS ---
WS: [id number] RIGHT UPPER QUADRANT ULTRASOUND HISTORY: CIRRHOSIS OF LIVER W/ASCITES COMPARISON: 09/06/2024 Liver: 10.9 cm in length. Small shrunken liver. Liver is poorly visualized due to body habitus. Cirrhotic configuration. No small echogenic focus in the liver is very nonspecific measuring 9 mm. The entire background of the liver is heterogeneous due to cirrhosis. Portal Vein: Normal hepatopetal flow with monophasic waveform. Gallbladder: Prior cholecystectomy. CBD: 0.3 cm Pancreas: Completely obscured. Right kidney: 11.0 cm in length. Lower pole cyst measures 3.9 x 4.0 x 4.2 cm. No renal obstruction. Aorta and IVC: Limited. Small amount of ascites. US/US abdomen limited [id number] IMPRESSION: Cirrhotic heterogeneous liver. No intrahepatic duct dilatation. Small amount of ascites.
== END 2025-05-02 09:58 | disposition home or self-care (01) ==
LOC: RAD 09:59
PROVIDERS: PCP Family Medicine; Visit Provider Family Medicine
DX: K74.60 Unspecified cirrhosis of liver (principal); R18.8 Other ascites; R93.2 Abnormal findings on diagnostic imaging of liver and biliary tract; Z90.49 Acquired absence of other specified parts of digestive tract
CPT/HCPCS: 76705